=== PATIENT | female | born 2000 | race African-American/Black ===

== ENCOUNTER 2022-06-09 14:05 | Emergency (ER) | payer MEDICAID ==
[~2022-06-09] VITALS: Ht 162.6 cm; Wt 73.5 kg
[2022-06-09] MEDS ORDERED: IBUPROFEN 600MG TABLET PO STA (16:25)
[2022-06-09 17:46] VITALS: BP 109/40
[2022-06-09] MEDS ORDERED: AMOX500T2 MT (18:38)
[2022-06-09] MEDS ORDERED: NAPR-681 PO (18:38)
== END 2022-06-09 19:18 | disposition home or self-care (01) ==
LOC: ER 14:05
DX: J02.9 Acute pharyngitis, unspecified (principal)
CPT/HCPCS: 81025; 87070; 87430; 99283